=== PATIENT | female | born 2000 | race Caucasian/White ===

== ENCOUNTER 2024-07-27 06:52 | Inpatient (IN) | payer OTHER ==
[~2024-07-27 06:52] MED LIST: Ropivacaine 0.2% PF 2 MG/ML 20 ML SDV ONE
[2024-07-27] MEDS ORDERED: Lidocaine 1% 50 ML MDV INJECT PRN (06:58)
[2024-07-27] MEDS ORDERED: Nalbuphine 10 MG/1 ML Vial IVPUSH PRN (06:58)
[2024-07-27] MEDS ORDERED: Sodium Chloride 0.9% 10 ML Syringe FLUSH PRN (06:58)
[2024-07-27] MEDS ORDERED: Ondansetron 4 MG/2 ML SDV IVPUSH PRN (06:58)
[2024-07-27] MEDS ORDERED: Oxytocin/0.9 % Sodium Chloride 30 UNIT/500 ML BAG IV SCH (07:00)
[2024-07-27 07:27] LABS: BASOPHILS PERCENT AUTO 0.3 % (0.0-1.0); EOSINOPHILS ABSOLUTE AUTO 0.3 K/mm3 (0.0-0.4); EOSINOPHILS PERCENT AUTO 2.9 % (0.0-6.0); HEMATOCRIT 35.4 % (37.0-47.0); HEMOGLOBIN 12.2 gm/dl (12.0-16.0); IMMATURE GRAN ABSOLUTE AUTO 0.04 K/mm3 (0.00-0.05); IMMATURE GRAN PERCENT AUTO 0.4 % (0.0-0.4); LYMPHOCYTES ABSOLUTE AUTO 1.7 K/mm3 (1.0-4.8); LYMPHOCYTES PERCENT AUTO 15.8 % (24.0-44.0); MEAN CORPUSCULAR HEMOGLOBIN 33.6 pg (28.0-32.0); MEAN CORPUSCULAR HGB CONC 34.5 g/dl (32.0-36.0); MEAN CORPUSCULAR VOLUME 97.5 fl (83.0-99.0); MEAN PLATELET VOLUME 9.4 fl (9.4-12.3); MONOCYTES ABSOLUTE AUTO 0.8 K/mm3 (0.0-0.8); MONOCYTES PERCENT AUTO 7.5 % (0.0-8.0); NEUTROPHILS ABSOLUTE AUTO 7.9 K/mm3 (1.8-7.7); NEUTROPHILS PERCENT AUTO 73.1 % (41.0-71.0); PLATELET COUNT,PLT 163 K/mm3 (150-400); RED BLOOD CELL COUNT 3.63 M/mm3 (4.10-5.30); WHITE BLOOD CELL COUNT,WBC 10.76 K/mm3 (3.9-11.3)
[2024-07-27] MEDS: Misoprostol 25 MCG (1/4 of 100 MCG) Tab VAG ONE (07:57)
[2024-07-27] MEDS: Sodium Chloride 0.9% 10 ML Syringe FLUSH SCH (09:00)
[2024-07-27] MEDS ORDERED: diphenhydrAMINE 50 MG/ML SDV IVPUSH PRN (09:13)
[2024-07-27] MEDS ORDERED: ePHEDrine 50 MG/ML SDV IVPUSH PRN (09:13)
[2024-07-27] MEDS: Misoprostol 25 MCG (1/4 of 100 MCG) Tab VAG PRN (12:07)
[2024-07-27] MEDS: Lactated Ringers 1,000 ML IV SCH (15:41)
[2024-07-27] MEDS: Bupivacaine/fentaNYL/NS 100 ML Bag EPIDUR PRN (20:36)
[2024-07-27] MEDS: fentaNYL 100 MCG/2 ML SDV EPIDUR PRN (20:36)
[2024-07-27] MEDS: Oxytocin/0.9 % Sodium Chloride 30 UNIT/500 ML BAG IV SCH (23:12)
[2024-07-28] MEDS: Acetaminophen 325 MG Tab PO PRN ×2 (05:17→21:32)
[2024-07-28] MEDS: Ibuprofen 600 MG Tab PO SCH (14:42)
[2024-07-28] MEDS: Benzocaine/Menthol 20%-0.5% Spray 78 GM Cannister TOP PRN (14:43)
[2024-07-28] MEDS: Witch Hazel Medicated Pads 40/Jar TOP PRN (14:43)
[2024-07-30] MEDS: Ibuprofen 600 MG Tab PO SCH (03:03)
[2024-07-30] MEDS: Docusate Sodium 100 MG Cap PO PRN (09:18)
== END 2024-07-30 13:25 | disposition home or self-care (01) | DRG 807 ==
LOC: JD.OB 06:52 → OBSVTOIN 07-28 12:14 → JD.OB 07-28 12:15
PROVIDERS: ADMIT Obstetrics & Gynecology; ATTEND Obstetrics & Gynecology
PROC: 10E0XZZ Delivery of Products of Conception, External Approach (ICD-10-PCS; principal; 2024-07-28)
PROC: 0KQM0ZZ Repair Perineum Muscle, Open Approach (ICD-10-PCS; 2024-07-28)
PROC: 10907ZC Drainage of Amniotic Fluid, Therapeutic from Products of Conception, Via Natural or Artificial Opening (ICD-10-PCS; 2024-07-28)
PROC: 3E0P7VZ Introduction of Hormone into Female Reproductive, Via Natural or Artificial Opening (ICD-10-PCS; 2024-07-28)
PROC: 3E0DXGC Introduction of Other Therapeutic Substance into Mouth and Pharynx, External Approach (ICD-10-PCS; 2024-07-28)
PROC: 0U7C7ZZ Dilation of Cervix, Via Natural or Artificial Opening (ICD-10-PCS; 2024-07-28)
PROC: 3E033VJ Introduction of Other Hormone into Peripheral Vein, Percutaneous Approach (ICD-10-PCS; 2024-07-28)
PROC: 3E0R3BZ Introduction of Anesthetic Agent into Spinal Canal, Percutaneous Approach (ICD-10-PCS; 2024-07-28)
PROC: 00HU33Z Insertion of Infusion Device into Spinal Canal, Percutaneous Approach (ICD-10-PCS; 2024-07-28)
DX: O48.0 Post-term pregnancy (principal); Z37.0 Single live birth; O99.344 Other mental disorders complicating childbirth; F41.9 Anxiety disorder, unspecified; F32.A Depression, unspecified; O70.1 Second degree perineal laceration during delivery; Z3A.40 40 weeks gestation of pregnancy; Z91.040 Latex allergy status; Z91.018 Allergy to other foods
CPT/HCPCS: 36415; 51702; 59025; 59409; 85025; 86592; 86850; 86900; 86901; A9270-GY; J2795; J3010; J3490; J7120; J7999